=== PATIENT | male | born 1955 | race Hispanic/Latino ===

== ENCOUNTER 2024-01-07 01:56 | Emergency (ER) | payer MEDICARE, SELFPAY ==
[2024-01-07 02:04] VITALS: BP 122/80; BMI 20.6
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
[2024-01-07] MEDS: MOTRIN 600 MG PO (03:09)
[2024-01-07 04:46] VITALS: BP 111/75
== END 2024-01-07 05:12 | disposition home or self-care (01) ==
LOC: EMR 01:56
PROVIDERS: EMERGENCY PHYSICIAN Emergency Medicine; FAMILY PHYSICIAN Internal Medicine
DX: S16.1XXA Strain of muscle, fascia and tendon at neck level, initial encounter (principal); S20.229A Contusion of unspecified back wall of thorax, initial encounter; S60.221A Contusion of right hand, initial encounter; S61.411A Laceration without foreign body of right hand, initial encounter; V49.9XXA Car occupant (driver) (passenger) injured in unspecified traffic accident, initial encounter; Y92.410 Unspecified street and highway as the place of occurrence of the external cause
CPT/HCPCS: 99284; 72050; 72125; 73130; 90715